=== PATIENT | female | born 1985 | race Caucasian/White ===

== ENCOUNTER 2021-12-06 15:10 | Emergency (ER) | payer OTHER ==
[~2021-12-06] VITALS: Ht 177 cm; Wt 88.0 kg
[2021-12-06 16:02] VITALS: BP 151/105
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
== END 2021-12-06 16:03 | disposition home or self-care (01) ==
LOC: EDUNIT# 15:10 → ER FS 15:12
DX: F41.9 Anxiety disorder, unspecified (principal)
CPT/HCPCS: 99281